=== PATIENT | female | born 1960 | race Caucasian/White ===

== ENCOUNTER 2019-03-18 09:28 | Emergency (ER) | payer OTHER ==
[~2019-03-18] VITALS: Ht 154.9 cm; Wt 61.2 kg
--- NOTE | 2019-03-18 10:26 | NUR ---
Patient discharged to home in stable conditon. Written and verbal after care instructions given. Patient verbalizes understanding of instructions.pt walks in steady gait.
== END 2019-03-18 10:27 | disposition home or self-care (01) ==
LOC: ER 09:28
DX: S62.611A Displaced fracture of proximal phalanx of left index finger, initial encounter for closed fracture (principal); Z88.0 Allergy status to penicillin; W01.0XXA Fall on same level from slipping, tripping and stumbling without subsequent striking against object, initial encounter; Y93.89 Activity, other specified; Y92.89 Other specified places as the place of occurrence of the external cause; Y99.8 Other external cause status
CPT/HCPCS: 73130; A4663

== ENCOUNTER 2019-08-04 18:43 | Emergency (ER) | payer OTHER ==
[~2019-08-04] VITALS: Ht 157.5 cm; Wt 59.0 kg
--- NOTE | 2019-08-04 19:00 | NUR ---
PT IS IN ROOM #2B. DR STEVENS EVALUATED THE PT.
[2019-08-04] MEDS ORDERED: NEOMY/BACITRA/POLYMYXIN B OINT UD PACKET TP ONE ×2 (19:15)
== END 2019-08-04 19:31 | disposition home or self-care (01) ==
LOC: ER 18:47
DX: S01.81XA Laceration without foreign body of other part of head, initial encounter (principal); S05.11XA Contusion of eyeball and orbital tissues, right eye, initial encounter; Z88.0 Allergy status to penicillin; W01.0XXA Fall on same level from slipping, tripping and stumbling without subsequent striking against object, initial encounter; Y93.89 Activity, other specified; Y92.89 Other specified places as the place of occurrence of the external cause; Y99.8 Other external cause status
CPT/HCPCS: A4663